=== PATIENT | male | born 1980 | race Caucasian/White ===

== ENCOUNTER 2016-11-11 17:10 | Emergency (ER) | payer OTHER ==
--- NOTE | 2016-11-11 17:43 | ED ORDER SUMMARY ---
..... Patient: GRANT DAVIS OrderSheet [facility] VisitID: [id number] [address] [place] [address] 35y, M Registration Date/Time: 11/11/2016 ORDER SHEET Weight: 88.4 kg (stated) Allergies: No Known Drug Allergy GENERAL ORDERS: MEDICATION ORDERS: Toradol IM 60 mg (NOW) (17:38 11/11/2016 HBivens A.R.N.P.) (Ack 17:39 MWinterer R.N.) (17:48 MWinterer R.N.) Valium PO 10 mg (HIGH ALERT MEDICATION, NOW) (17:38 11/11/2016 HBivens A.R.N.P.) (Ack 17:39 MWinterer R.N.) (17:48 MWinterer R.N.) IV FLUIDS: ORDER SHEET NOTES: [Electronically signed by Ann Pickering R.N. (18:17 11/11/2016)] [Electronically signed by Naomie DolanR.N.P. (21:14 11/11/2016)] [Electronically locked/signed by Ann Pickering R.N. (18:17 11/11/2016)]
--- NOTE | 2016-11-11 17:43 | ED ORDER SUMMARY ---
..... Patient: GRANT DAVIS OrderSheet [facility] VisitID: [id number] [address] [place] [address] 35y, M Registration Date/Time: 11/11/2016 ORDER SHEET Weight: 88.4 kg (stated) Allergies: No Known Drug Allergy GENERAL ORDERS: MEDICATION ORDERS: Toradol IM 60 mg (NOW) (17:38 11/11/2016 HBivens A.R.N.P.) (Ack 17:39 MWinterer R.N.) (17:48 MWinterer R.N.) Valium PO 10 mg (HIGH ALERT MEDICATION, NOW) (17:38 11/11/2016 HBivens A.R.N.P.) (Ack 17:39 MWinterer R.N.) (17:48 MWinterer R.N.) IV FLUIDS: ORDER SHEET NOTES: [Electronically signed by Ann Pickering R.N. (18:17 11/11/2016)] [Electronically signed by Naomie DolanR.N.P. (21:14 11/11/2016)] [Electronically locked/signed by Ann Pickering R.N. (18:17 11/11/2016)]
--- NOTE | 2016-11-11 17:43 | ED NURSING NOTES ---
Clinical Report - Nurses Merged With [facility] [place] [address] 11/11/2016 17:12 Patient: GRNAT DAVIS TRIAGE Acuity: LEVEL 4. Chief Complaint: BACK PAIN. Alert. No acute distress. JOHAN COMA SCORE: [place] Coma Scale: 15- eyes open spontaneously (4); best verbal response- oriented x 4 (5); best motor response- obeys commands (6). --17:22 Ann Pickering R.N. 17:17 11/11/16. BP: 137/78. HR: 70. RR: 20. O2 saturation: 97%. Temp: 97.9 F (oral). Pain level now: 8/10. --17:22 Ann Pickering R.N. Weight: 88.4 kg stated. Height/Length: 73 inches Per Patient. BMI: 25.7. --17:21 Ann Pickering R.N. Medications None. --17:20 Ann Pickering R.N. Medication/allergy information source: the patient. --17:22 Ann Pickering R.N. Allergies No Known Drug Allergy. --17:20 Ann Pickering R.N. History Arrived by private vehicle. Historian: patient. Accompanied by (spouse). Primary physician (none). This started yesterday. Relates the location as in the lower lumbar region. ( Pt reports he "have had back problems for a year. Yesterday I was riding in the car and I have been in pain since then."). ( Pt also reports lower abdominal and groin pain as well.). SOCIAL HX: Never smoker. Occasional alcohol use. No drug use. FALL RISK ASSESSMENT: Fall risk assessment completed. No fall risk identified. NUTRITIONAL RISK ASSESSMENT: The nutritional risk assessment revealed no deficiencies. FUNCTIONAL ASSESSMENT: Functional assessment: no impairments noted. LEARNING NEEDS ASSESSMENT: The learning needs assessment revealed no barriers. SKIN INTEGRITY ASSESSMENT: Skin integrity risk assessment completed. No skin integrity risk identified. --17:22 Ann Pickering R.N. PROBLEMS: Acute Pain. Sprain. Crush Injury. Back Pain. Neck Pain. Bone tumor femur. Neck Injury. --17:20 Ann Pickering R.N. ADDITIONAL SURGERIES: Surgery on femur. --17:20 Ann Pickering R.N. Assessment GENERAL / NEURO / PSYCH: Alert. Oriented X 4. Appears in no acute distress. Appears in pain. Patient appears calm and cooperative. RESPIRATORY: Respirations not labored. CVS: Capillary refill less than 2 seconds. GI / : Abdomen soft. SKIN: Mucous membranes are pink. Skin is warm and dry. --17:22 Ann Pickering R.N. Interventions ID band on patient. To treatment room. --17:22 Ann Pickering R.N. NURSING PROGRESS NOTES 17:22 11/11/16. Patient gowned. Two patient identifiers checked. Call light placed in reach. Bed placed in lowest position. Brakes of bed on. Patient ready for evaluation- chart flagged and LABOR UTILIZATION SUPERINTENDENT notified. --17:22 Ann Pickering R.N. 17:48 11/11/2016 Toradol (Ketorolac Tromethamine) IM 60 mg given. Given in the left gluteus brad. Allergies verified and confirmed 5 rights. --17:48 Ann Pickering R.N. 17:48 11/11/2016 Valium (Diazepam) PO 10 mg given. Allergies verified, confirmed 5 rights and sedative warning given to the patient. --17:48 Ann Pickering R.N. DISPOSITION / DISCHARGE Departure time: 18:10 Nov 11 2016. Condition at departure: improved and stable. No learning barriers present. Discharge instructions provided and reviewed with the patient. Reviewed medication(s) side effects, precautions and dosing information. Prescription(s) given to the patient. Patient verbalized understanding. Written instructions provided in Pashto. The patient was discharged by the nurse practitioner. He was discharged home and accompanied by spouse. He left the Emergency Department ambulatory and via private vehicle. Spouse driving. --18:17 Ann Pickering R.N. 18:15 11/11/16. BP: deferred. Additional comments: pt refusal. --18:17 Ann Pickering R.N. Locked/Released at 11/11/2016 18:17 by Ann Pickering R.N.
--- NOTE | 2016-11-11 17:43 | ED NURSING NOTES ---
Clinical Report - Nurses [facility] [place] [address] 11/11/2016 17:12 Patient: GRANT DAVIS TRIAGE Acuity: LEVEL 4. Chief Complaint: BACK PAIN. Alert. No acute distress. JOHAN COMA SCORE: [place] Coma Scale: 15- eyes open spontaneously (4); best verbal response- oriented x 4 (5); best motor response- obeys commands (6). --17:22 Ann Pickering R.N. 17:17 11/11/16. BP: 137/78. HR: 70. RR: 20. O2 saturation: 97%. Temp: 97.9 F (oral). Pain level now: 8/10. --17:22 Ann Pickering R.N. Weight: 88.4 kg stated. Height/Length: 73 inches Per Patient. BMI: 25.7. --17:21 Ann Pickering R.N. Medications None. --17:20 Ann Pickering R.N. Medication/allergy information source: the patient. --17:22 Ann Pickering R.N. Allergies No Known Drug Allergy. --17:20 Ann Pickering R.N. History Arrived by private vehicle. Historian: patient. Accompanied by (spouse). Primary physician (none). This started yesterday. Relates the location as in the lower lumbar region. ( Pt reports he "have had back problems for a year. Yesterday I was riding in the car and I have been in pain since then."). ( Pt also reports lower abdominal and groin pain as well.). SOCIAL HX: Never smoker. Occasional alcohol use. No drug use. FALL RISK ASSESSMENT: Fall risk assessment completed. No fall risk identified. NUTRITIONAL RISK ASSESSMENT: The nutritional risk assessment revealed no deficiencies. FUNCTIONAL ASSESSMENT: Functional assessment: no impairments noted. LEARNING NEEDS ASSESSMENT: The learning needs assessment revealed no barriers. SKIN INTEGRITY ASSESSMENT: Skin integrity risk assessment completed. No skin integrity risk identified. --17:22 Ann Pickering R.N. PROBLEMS: Acute Pain. Sprain. Crush Injury. Back Pain. Neck Pain. Bone tumor femur. Neck Injury. --17:20 Ann Pickering R.N. ADDITIONAL SURGERIES: Surgery on femur. --17:20 Ann Pickering R.N. Assessment GENERAL / NEURO / PSYCH: Alert. Oriented X 4. Appears in no acute distress. Appears in pain. Patient appears calm and cooperative. RESPIRATORY: Respirations not labored. CVS: Capillary refill less than 2 seconds. GI / : Abdomen soft. SKIN: Mucous membranes are pink. Skin is warm and dry. --17:22 Ann Pickering R.N. Interventions ID band on patient. To treatment room. --17:22 Ann Pickering R.N. NURSING PROGRESS NOTES 17:22 11/11/16. Patient gowned. Two patient identifiers checked. Call light placed in reach. Bed placed in lowest position. Brakes of bed on. Patient ready for evaluation- chart flagged and GREY GOODS MARKER notified. --17:22 Ann Pickering R.N. 17:48 11/11/2016 Toradol (Ketorolac Tromethamine) IM 60 mg given. Given in the left gluteus brad. Allergies verified and confirmed 5 rights. --17:48 Ann Pickering R.N. 17:48 11/11/2016 Valium (Diazepam) PO 10 mg given. Allergies verified, confirmed 5 rights and sedative warning given to the patient. --17:48 Ann Pickering R.N. DISPOSITION / DISCHARGE Departure time: 18:10 Nov 11 2016. Condition at departure: improved and stable. No learning barriers present. Discharge instructions provided and reviewed with the patient. Reviewed medication(s) side effects, precautions and dosing information. Prescription(s) given to the patient. Patient verbalized understanding. Written instructions provided in Kyrgyz. The patient was discharged by the nurse practitioner. He was discharged home and accompanied by spouse. He left the Emergency Department ambulatory and via private vehicle. Spouse driving. --18:17 Ann Pickering R.N. 18:15 11/11/16. BP: deferred. Additional comments: pt refusal. --18:17 Ann Pickering R.N. Locked/Released at 11/11/2016 18:17 by Ann Pickering R.N.
--- NOTE | 2016-11-11 17:43 | ED CLINICAL REPORT ---
Clinical Report - Physicians/Mid Levels [facility] [address] [place] [address] 11/11/2016 17:12 Patient: GRANT DAVIS Time Seen: 17:15; upon arrival, initial patient contact, initial documentation, patient care assumed. Arrived- By private vehicle. Historian- patient. HISTORY OF PRESENT ILLNESS Chief Complaint: BACK PAIN. It is described as being severe and in the area of the left lower lumbar spine, lower lumbar spine and right lower lumbar spine and radiating to the right hip and thigh, right lower quadrant of the abdomen, right pelvis, right groin and right testicle and to the left hip and thigh, left lower quadrant of the abdomen, left pelvis, left groin and left testicle. The quality is noted to be "pain" and similar to prior episodes. Modifying factors- worsened by standing, walking, rotation of the body to the right or left, bending over, lifting or taking deep breaths. Not relieved by anything. Onset was yesterday and it is still present. It was abrupt in onset and has been constant. No bladder dysfunction, bowel dysfunction, sensory loss or motor loss. Additional history - pain is same as past flare ups, the pain is constant, every day, in low back, with spasms, and it tightening up, radiates to lower abd and groin and pain in testicles, denies any injury/trauma, states pain started to flare up when sitting in car yesterday for road trip. Patient denies an injury but injury to the head or neck. No other injury. Similar symptoms previously: Chronically, as bad. ( dx with disc issue about 10 mos ago, after having back pain for over a year). Recent medical care: Not recently seen/assessed. REVIEW OF SYSTEMS No difficulty with urination, urinary frequency, hematuria, difficulty breathing or chest pain. No vomiting or diarrhea. He has had abdominal pain. All systems otherwise negative, except as recorded above. PAST HISTORY See nurses notes. PROBLEMS: Acute Pain. Sprain. Crush Injury. Back Pain. Neck Pain. Bone tumor femur. Neck Injury. --17:20 Ann Pickering R.N. ADDITIONAL SURGERIES: Surgery on femur. --17:20 Ann Pickering R.N. SOCIAL HISTORY Never smoker. Occasional alcohol use. No drug use. No recent travel. Is a local resident. FAMILY HISTORY Negative. ADDITIONAL NOTES The nursing notes have been reviewed with agreement regarding the chief complaint, HPI, ROS, PMH and patient medications and allergies. PHYSICAL EXAM Vital Signs: 11/11/2016 17:17 BP: 137/78. HR: 70. RR: 20. O2 saturation: 97%. Temp: 97.9 F. Pain level now: 8/10. Have been reviewed as normal and appear to be correct. Appearance: Alert. No acute distress. Neck: Normal inspection. Neck nontender. Painless ROM. CVS: Heart sounds normal. Pulses normal. Respiratory: No respiratory distress. Breath sounds normal. Abdomen: No visible injury. Soft and nontender. No organomegaly. No mass. Back: No tenderness. Abnormal inspection. No painless ROM. Moderately limited ROM in the back- in the lumbar spine: decreased flexion, right lateral bending, left lateral bending and rotation to the right and left. No muscle spasm in the back, vertebral point tenderness, soft tissue tenderness or CVA tenderness. Skin: Skin warm and dry. Normal skin color. No rash. Normal skin turgor. Extremities: Extremities exhibit normal ROM. Extremities nontender. Neuro: Oriented X 3. Mood/affect normal. No motor deficit. No sensory deficit. PROGRESS AND PROCEDURES Course of Care: 17:18 11/11/16. pt has brief cari, nothing alarming, see report for full details. Patient counseled in person regarding the patient's stable condition and diagnosis. 17:43. Differential Diagnosis: I considered Musculo-skeletal strain, contusion, disk protrusion, vertebral fracture, facet syndrome, sacroiliac joint strain, sciatica, osteoarthritis, lumbar spondylosis, spinal stenosis, ankylosing spondylitis, sacroiliac joint inflammation, lymphoma and prostatic cancer as a possible cause of back pain in this patient. This is a partial list of diagnoses considered. Above considerations are based on history and physical exam. Differential diagnosis was discussed with patient. Disposition: Discharged home in good and improved condition (17:43). Condition: good and stable. CLINICAL IMPRESSION Chronic nontraumatic lumbar back pain. Sciatica present on the right and left. No radiculopathy or neurological deficit. INSTRUCTIONS Do not work today, tomorrow. Warnings: GENERAL WARNINGS: Return or contact your physician immediately if your condition worsens or changes unexpectedly, if not improving as expected, or if other problems arise. SPECIFICALLY, return if you develop incontinence of urine (loss of bladder control). Prescription Medications: Flexeril 10 mg: Take 1 orally every 8 hours as needed for muscle spasm. Dispense twenty (20). No refills. Substitution is permissible. Ultram 50 mg tablets: take 1-2 orally every 6 hours as needed for pain. Dispense twenty (20). No refills. Substitution is permissible. Follow-up: Follow up with your doctor in about three days as needed. Call for an appointment. Summary of care provided to patient. Understanding of the discharge instructions verbalized by patient. (Electronically signed by Naomie Dolan A.R.N.P. 11/11/2016 21:14)
--- NOTE | 2016-11-11 21:14 | ED MED RECONCILIATION SUMMARY ---
Patient: GRANT DAVIS Medication Reconciliation Report [facility] VisitID: [id number] [address] [place] [address] 35y, M Registration Date/Time: 11/11/2016 Weight: 88.4 kg Height/Length: 73 in. BMI: 25.7 ALLERGIES: No Known Drug Allergy The patient's Home Medications are listed below: NONE. The source(s) of the original Home Medication information: patient The following Medications were given to the patient in the Emergency Department: Toradol [IM] IM 60 mg, administered: 11/11/2016 5:48:00 PM Valium [PO] PO 10 mg, administered: 11/11/2016 5:48:00 PM The following Medications were prescribed to the patient: Flexeril 10 mg: Take 1 orally every 8 hours as needed for muscle spasm. Dispense twenty (20). No refills. Substitution is permissible. -- Naomie Dolan, Yovany.R.N.P. Ultram 50 mg tablets: take 1-2 orally every 6 hours as needed for pain. Dispense twenty (20). No refills. Substitution is permissible. -- Naomie Dolan A.R.N.P.
--- NOTE | 2016-11-11 21:14 | ED DISCHARGE INSTRUCTIONS ---
Patient: GRANT DAVIS General Instructions [facility] VisitID: [id number] [address] [place] [address] 35y, M Registration Date/Time: 11/11/2016 Chronic nontraumatic lumbar back pain. Sciatica present on the right and left. No radiculopathy or neurological deficit. INSTRUCTIONS Do not work today, tomorrow. Warnings: GENERAL WARNINGS: Return or contact your physician immediately if your condition worsens or changes unexpectedly, if not improving as expected, or if other problems arise. SPECIFICALLY, return if you develop incontinence of urine (loss of bladder control). Prescription Medications: Flexeril 10 mg: Take 1 orally every 8 hours as needed for muscle spasm. Dispense twenty (20). No refills. Substitution is permissible. Ultram 50 mg tablets: take 1-2 orally every 6 hours as needed for pain. Dispense twenty (20). No refills. Substitution is permissible. Follow-up: Follow up with your doctor in about three days as needed. Call for an appointment. Summary of care provided to patient. Understanding of the discharge instructions verbalized by patient. ADDITIONAL INFORMATION Back Pain [Acute Or Chronic] Back pain is usually caused by an injury to the muscles or ligaments of the spine. Sometimes the disks that separate each bone in the spine may bulge and cause pain by pressing on a nearby nerve. Back pain may also appear after a sudden twisting/bending force (such as in a car accident), after a simple awkward movement, or lifting something heavy with poor body positioning. In either case, muscle spasm is often present and adds to the pain. Acute back pain usually gets better in one to two weeks. Back pain related to disk disease, arthritis in the spinal joints or spinal stenosis (narrowing of the spinal canal) can become chronic and last for months or years. Unless you had a physical injury (for example, a car accident or fall) X-rays are usually not ordered for the initial evaluation of back pain. If pain continues and does not respond to medical treatment, x-rays and other tests may be performed at a later time. Home Care: You may need to stay in bed the first few days. But, as soon as possible, begin sitting or walking to avoid problems with prolonged bed rest (muscle weakness, worsening back stiffness and pain, blood clots in the legs). When in bed, try to find a position of comfort. A firm mattress is best. Try lying flat on your back with pillows under your knees. You can also try lying on your side with your knees bent up towards your chest and a pillow between your knees. Avoid prolonged sitting. This puts more stress on the lower back than standing or walking. During the first two days after injury, apply an ICE PACK to the painful area for 20 minutes every 2-4 hours. This will reduce swelling and pain. HEAT (hot shower, hot bath or heating pad) works well for muscle spasm. You can start with ice, then switch to heat after two days. Some patients feel best alternating ice and heat treatments. Use the one method that feels the best to you. You may use acetaminophen (Tylenol) or ibuprofen (Motrin, Advil) to control pain, unless another pain medicine was prescribed. [NOTE: If you have chronic liver or kidney disease or ever had a stomach ulcer or GI bleeding, talk with your doctor before using these medicines.] Be aware of safe lifting methods and do not lift anything over 15 pounds until all the pain is gone. Follow Up with your doctor or this facility if your symptoms do not start to improve after one week. Physical therapy may be needed. [NOTE: If X-rays were taken, they will be reviewed by a radiologist. You will be notified of any new findings that may affect your care.] Get Prompt Medical Attention if any of the following occur: Pain becomes worse or spreads to your legs Weakness or numbness in one or both legs Loss of bowel or bladder control Numbness in the groin or genital area Sciatica Sciatica ("Lumbar Radiculopathy") causes a pain that spreads from the lower back down into the buttock, hip and leg. Sometimes leg pain can occur without any back pain. Sciatica is due to irritation or pressure on a spinal nerve as it comes out of the spinal canal. This is most often due to a bulge or rupture of a nearby spinal disk (the cartilage cushion between each spinal bone), which presses on a nearby nerve. Other causes include spinal stenosis (narrowing of the spinal canal) and spasm of the pyriform muscle (a muscle in the buttocks that the sciatic nerve passes through). Sciatica may begin after a sudden twisting/bending force (such as in a car accident), or sometimes after a simple awkward movement. In either case, muscle spasm is commonly present and contributes to the pain. The diagnosis of sciatica is made from the symptoms and physical exam. Unless you had a physical injury (such as a car accident or fall), X-rays are usually not ordered for the initial evaluation of sciatica because the nerves and disks cannot be seen on an x-ray. If signs of a compressed nerve are present (for example, loss of tendon reflex or strength in the leg), an MRI (magnetic resonance imaging) scan will need to be scheduled as an outpatient. Most sciatica (80-90%) gets better with medicine, exercise, physical therapy. If symptoms continue after at least three months of medical treatment, surgery may be considered. Home Care: You may need to stay in bed the first few days. But, as soon as possible, begin sitting or walking to avoid problems with prolonged bed rest. When in bed, try to find a position of comfort. A firm mattress is best. Try lying flat on your back with pillows under your knees. You can also try lying on your side with your knees bent up towards your chest and a pillow between your knees. Avoid prolonged sitting. This puts more stress on the lower back than standing or walking. Some persons find relief with heat (hot shower, hot bath or heating pad) and massage, while others prefer cold packs (crushed or cubed ice in a plastic bag, wrapped in a towel). Try both and use the method that feels best for 20 minutes several times a day. You may use acetaminophen (Tylenol) or ibuprofen (Motrin, Advil) to control pain, unless another pain medicine was prescribed. [ NOTE: If you have chronic liver or kidney disease or ever had a stomach ulcer or GI bleeding, talk with your doctor before using these medicines.] Be aware of safe lifting methods and do not lift anything over 15 pounds until all the pain is gone. Follow Up with your doctor or this facility if your symptoms do not start to improve after one week. Physical therapy or further testing may be needed. [NOTE: If X-rays were taken, they will be reviewed by a radiologist. You will be notified of any new findings that may affect your care.] Get Prompt Medical Attention if any of the following occur: Pain becomes worse, not controlled by the prescribed medicine Weakness or numbness in one or both legs Numbness in the groin, genital area Loss of bowel or bladder control Cyclobenzaprine Hydrochloride Oral tablet What is this medicine? CYCLOBENZAPRINE (les barajas) is a muscle relaxer. It is used to treat muscle pain, spasms, and stiffness. How should I use this medicine? Take this medicine by mouth with a glass of water. Follow the directions on the prescription label. If this medicine upsets your stomach, take it with food or milk. Take your medicine at regular intervals. Do not take it more often than directed. Talk to your cable assembler and swager regarding the use of this medicine in children. Special care may be needed. What side effects may I notice from receiving this medicine? Side effects that you should report to your doctor or health body care manager as soon as possible: allergic reactions like skin rash, itching or hives, swelling of the face, lips, or tongue chest pain fast heartbeat hallucinations seizures vomiting Side effects that usually do not require medical attention (report to your doctor or health body care manager if they continue or are bothersome): headache What may interact with this medicine? Do not take this medicine with any of the following medications: cisapride droperidol flecainide grepafloxacin halofantrine levomethadyl MAOIs like Carbex, Eldepryl, Marplan, Nardil, and Parnate nilotinib pimozide probucol sertindole This medicine may also interact with the following medications: abarelix alcohol contrast dyes dolasetron guanethidine medicines for cancer medicines for depression, anxiety, or psychotic disturbances medicines to treat an irregular heartbeat medicines used for sleep or numbness during surgery or procedure methadone octreotide ondansetron palonosetron phenothiazines like chlorpromazine, mesoridazine, prochlorperazine, thioridazine some medicines for infection like alfuzosin, chloroquine, clarithromycin, levofloxacin, mefloquine, pentamidine, troleandomycin tramadol vardenafil What if I miss a dose? If you miss a dose, take it as soon as you can. If it is almost time for your next dose, take only that dose. Do not take double or extra doses. Where should I keep my medicine? Keep out of the reach of children. Store at room temperature between 15 and 30 degrees C (59 and 86 degrees F). Keep container tightly closed. Throw away any unused medicine after the expiration date. What should I tell my health care provider before I take this medicine? They need to know if you have any of these conditions: heart disease, irregular heartbeat, or previous heart attack liver disease thyroid problem an unusual or allergic reaction to cyclobenzaprine, tricyclic antidepressants, lactose, other medicines, foods, dyes, or preservatives or trying to get breast-feeding What should I watch for while using this medicine? Check with your doctor or health body care manager if your condition does not improve within 1 to 3 weeks. You may get drowsy or dizzy when you first start taking the medicine or change doses. Do not drive, use machinery, or do anything that may be dangerous until you know how the medicine affects you. Stand or sit up slowly. Your mouth may get dry. Drinking water, chewing sugarless gum, or sucking on hard candy may help. Tramadol Hydrochloride Oral tablet What is this medicine? TRAMADOL (TRA ma dole) is a pain reliever. It is used to treat moderate to severe pain in adults. How should I use this medicine? Take this medicine by mouth with a full glass of water. Follow the directions on the prescription label. If the medicine upsets your stomach, take it with food or milk. Do not take more medicine than you are told to take. Talk to your cable assembler and swager regarding the use of this medicine in children. Special care may be needed. What side effects may I notice from receiving this medicine? Side effects that you should report to your doctor or health body care manager as soon as possible: allergic reactions like skin rash, itching or hives, swelling of the face, lips, or tongue breathing difficulties, wheezing confusion itching light headedness or fainting spells redness, blistering, peeling or loosening of the skin, including inside the mouth seizures Side effects that usually do not require medical attention (report to your doctor or health body care manager if they continue or are bothersome): constipation dizziness drowsiness headache nausea, vomiting What may interact with this medicine? Do not take this medicine with any of the following medications: MAOIs like Carbex, Eldepryl, Marplan, Nardil, and Parnate This medicine may also interact with the following medications: alcohol or medicines that contain alcohol antihistamines benzodiazepines bupropion carbamazepine or oxcarbazepine clozapine cyclobenzaprine digoxin furazolidone linezolid medicines for depression, anxiety, or psychotic disturbances medicines for migraine headache like almotriptan, eletriptan, frovatriptan, naratriptan, rizatriptan, sumatriptan, zolmitriptan medicines for pain like pentazocine, buprenorphine, butorphanol, meperidine, nalbuphine, and propoxyphene medicines for sleep muscle relaxants naltrexone phenobarbital phenothiazines like perphenazine, thioridazine, chlorpromazine, mesoridazine, fluphenazine, prochlorperazine, promazine, and trifluoperazine procarbazine warfarin What if I miss a dose? If you miss a dose, take it as soon as you can. If it is almost time for your next dose, take only that dose. Do not take double or extra doses. Where should I keep my medicine? Keep out of the reach of children. Store at room temperature between 15 and 30 degrees C (59 and 86 degrees F). Keep container tightly closed. Throw away any unused medicine after the expiration date. What should I tell my health care provider before I take this medicine? They need to know if you have any of these conditions: brain tumor depression drug abuse or addiction head injury if you frequently drink alcohol containing drinks kidney disease or trouble passing urine liver disease lung disease, asthma, or breathing problems seizures or epilepsy suicidal thoughts, plans, or attempt; a previous suicide attempt by you or a family member an unusual or allergic reaction to tramadol, codeine, other medicines, foods, dyes, or preservatives or trying to get breast-feeding What should I watch for while using this medicine? Tell your doctor or health body care manager if your pain does not go away, if it gets worse, or if you have new or a different type of pain. You may develop tolerance to the medicine. Tolerance means that you will need a higher dose of the medicine for pain relief. Tolerance is normal and is expected if you take this medicine for a long time. Do not suddenly stop taking your medicine because you may develop a severe reaction. Your body becomes used to the medicine. This does NOT mean you are addicted. Addiction is a behavior related to getting and using a drug for a non-medical reason. If you have pain, you have a medical reason to take pain medicine. Your doctor will tell you how much medicine to take. If your doctor wants you to stop the medicine, the dose will be slowly lowered over time to avoid any side effects. You may get drowsy or dizzy. Do not drive, use machinery, or do anything that needs mental alertness until you know how this medicine affects you. Do not stand or sit up quickly, especially if you are an older patient. This reduces the risk of dizzy or fainting spells. Alcohol can increase or decrease the effects of this medicine. Avoid alcoholic drinks. You may have constipation. Try to have a bowel movement at least every 2 to 3 days. If you do not have a bowel movement for 3 days, call your doctor or health body care manager. Your mouth may get dry. Chewing sugarless gum or sucking hard candy, and drinking plenty of water may help. Contact your doctor if the problem does not go away or is severe. You have been given the following additional information: Back Pain (Acute Or Chronic) Back Pain W/ Sciatica Cyclobenzaprine Hydrochloride Oral tablet Tramadol Hydrochloride Oral tablet Do not work today, tomorrow. (Electronically signed by Naomie Dolan A.R.N.P. 11/11/2016 21:14)
--- NOTE | 2016-11-11 21:14 | ED MAR SUMMARY ---
..... Medication Administration Record [facility] [address] [place] [address] Patient: GRANT DAVIS Visit ID: [id number] 35y, M Weight: 88.4 kg Height/Length: 73 in BMI: 25.7 ALLERGIES: No Known Drug Allergy Given 17:48 11/11/2016 Ann Pickering, R.N. Medication Administered: TORADOL [IM] (KETOROLAC TROMETHAMINE), Dose: 60 mg IM. Medication Ordered: Toradol IM 60 mg (NOW). Given 17:48 11/11/2016 Ann Pickering, R.N. Medication Administered: VALIUM [PO] (DIAZEPAM), Dose: 10 mg PO. Medication Ordered: Valium PO 10 mg (HIGH ALERT MEDICATION, NOW).
--- NOTE | 2016-11-11 21:14 | ED MED RECONCILIATION SUMMARY ---
Patient: GRANT DAVIS Medication Reconciliation Report [facility] VisitID: [id number] [address] [place] [address] 35y, M Registration Date/Time: 11/11/2016 Weight: 88.4 kg Height/Length: 73 in. BMI: 25.7 ALLERGIES: No Known Drug Allergy The patient's Home Medications are listed below: NONE. The source(s) of the original Home Medication information: patient The following Medications were given to the patient in the Emergency Department: Toradol [IM] IM 60 mg, administered: 11/11/2016 5:48:00 PM Valium [PO] PO 10 mg, administered: 11/11/2016 5:48:00 PM The following Medications were prescribed to the patient: Flexeril 10 mg: Take 1 orally every 8 hours as needed for muscle spasm. Dispense twenty (20). No refills. Substitution is permissible. -- Naomie Dolan, Yovany.R.N.P. Ultram 50 mg tablets: take 1-2 orally every 6 hours as needed for pain. Dispense twenty (20). No refills. Substitution is permissible. -- Naomie Dolan A.R.N.P.
--- NOTE | 2016-11-11 21:14 | ED MAR SUMMARY ---
..... Medication Administration Record [facility] [address] [place] [address] Patient: GRANT DAVIS Visit ID: [id number] 35y, M Weight: 88.4 kg Height/Length: 73 in BMI: 25.7 ALLERGIES: No Known Drug Allergy Given 17:48 11/11/2016 Ann Pickering, R.N. Medication Administered: TORADOL [IM] (KETOROLAC TROMETHAMINE), Dose: 60 mg IM. Medication Ordered: Toradol IM 60 mg (NOW). Given 17:48 11/11/2016 Ann Pickering, R.N. Medication Administered: VALIUM [PO] (DIAZEPAM), Dose: 10 mg PO. Medication Ordered: Valium PO 10 mg (HIGH ALERT MEDICATION, NOW).
== END 2016-11-11 18:10 | disposition home or self-care (01) ==
LOC: ED SRH 17:10
DX: M54.41 Lumbago with sciatica, right side (principal); M54.42 Lumbago with sciatica, left side; G89.29 Other chronic pain